=== PATIENT | male | born 1940 | race Caucasian/White ===

== ENCOUNTER 2021-07-06 05:05 | Day surgery (SDC) | payer MEDICARE ==
[2021-07-06] MEDS ORDERED: fentaNYL 100 MCG/2 ML SDV IV ONE ×3 (05:06→06:42)
[2021-07-06] MEDS ORDERED: Midazolam 1 MG/ML 2 ML SDV IV ONE ×3 (05:06→06:44)
[2021-07-06] MEDS ORDERED: fentaNYL 100 MCG/2 ML SDV ONE (05:24)
[2021-07-06] MEDS ORDERED: Midazolam 1 MG/ML 2 ML SDV ONE (05:24)
[2021-07-06] MEDS ORDERED: Dextrose 5%-0.45% NaCl 1,000 ML IV SCH (06:05)
--- NOTE | 2021-07-06 07:39 | OR ---
DATE: 07/06/2021 PROCEDURES: Esophagogastroduodenoscopy, narrow band imaging, and multiple pinch biopsies. INSTRUMENT USED: GIF-HQ190 Olympus video panendoscope. PREMEDICATIONS: No oral or topical anesthesia used. Fentanyl 100 mcg intravenous, Versed 2 mg intravenous. The procedure was done under pulse oximetry, BP recording, and quality assurance monitor body. INDICATION: The patient with temporal poorly differentiated carcinoma, metastatic. Esophagogastroduodenoscopy is performed for detection of any active erosive lesions, malignancy also under consideration, endoscopic hemostasis therapy if needed. DESCRIPTION OF PROCEDURE: The scope was passed with ease. Adequate visualization of the esophagus was made from proximal to distal areas. No upper esophageal lesions identified. No distal esophageal stricture. No uphill or downhill esophageal varices. No Madelaine-Barreto tear. No evidence of erosive esophagitis by Wagoner criteria. No esophageal polyp or tumor mass identified. Z-line was seen at around 40 cm distal to the oral verge. No proximal gastric varices noted. Gastric fundus examination by retroflexion showed diminutive and benign-appearing polyps. No gastric ulcer, malignant mass, or vascular ectasia identified. Scattered gastric antral erosions were noted without bleeding from them. In the gastric antrum, over 1 cm sized benign- appearing submucosal lesion was noted, NBI views were obtained, multiple pinch biopsies were obtained and sent for histopathology. Duodenal bulb showed no ulcer. Visualized second part of the duodenum was unremarkable. Multiple pinch biopsies were taken from the gastric antrum and proximal body and sent for PyloriTek test for H. pylori and histopathology. No bleeding was noted from any of the visualized areas at the completion of examination. Photographs were taken of the duodenal bulb, gastric antrum, fundus, and distal esophagus. IMPRESSION: 1. Gastric antral erosions. 2. Gastric antral submucosal lesion. 3. Diminutive gastric fundus polyps. The patient tolerated the procedure well. [facility] /[id number]
--- NOTE | 2021-07-06 07:48 | LETTER ---
07/06/2021 RE: NATHAN HARMAN : 1940 Gustavo Adkins MD Oncology Services, [address] Adkins: Mr. Nathan Harman had esophagogastroduodenoscopy done this morning and he tolerated the procedure well. I herewith send a copy of the endoscopy note and photographs for your review. Thank you. Sincerely, [facility] /[id number]
[2021-07-06 10:41] VITALS: BP 145/69; PULSE 61
--- NOTE | 2021-07-12 09:13 | LETTER ---
07/12/2021 RE: ADAIRNATHAN AMERICA : 1940 Gustavo Adkins MD Oncology Services, [address] Adkins: Mr. Nathan Tate had esophagogastroduodenoscopy done and tolerated the procedure well. I herewith send a copy of the endoscopy note and photographs for your review. Thank you. Sincerely, [facility] /[id number]
== END 2021-07-06 09:02 | disposition home or self-care (01) ==
LOC: DL.ENDO 05:05
PROVIDERS: ATTEND Internal Medicine Gastroenterology
DX: K31.89 Other diseases of stomach and duodenum (principal); I78.1 Nevus, non-neoplastic; C76.0 Malignant neoplasm of head, face and neck; Z01.812 Encounter for preprocedural laboratory examination; Z20.822 Contact with and (suspected) exposure to COVID-19
CPT/HCPCS: 43239; 87077; 88305; 88342; J2250; J3010; J7042; U0002

== ENCOUNTER 2021-07-14 05:59 | Day surgery (SDC) | payer MEDICARE, OTHER ==
[~2021-07-14 05:59] MED LIST: Midazolam 1 MG/ML 2 ML SDV ONE; fentaNYL 100 MCG/2 ML SDV ONE
[2021-07-14] MEDS ORDERED: Midazolam 1 MG/ML 2 ML SDV IV ONE ×4 (06:00→07:57)
[2021-07-14] MEDS ORDERED: fentaNYL 100 MCG/2 ML SDV IV ONE ×3 (06:00→07:50)
[2021-07-14] MEDS ORDERED: Dextrose 5%-0.45% NaCl 1,000 ML IV SCH (07:00)
--- NOTE | 2021-07-14 09:08 | OR ---
DATE: 07/14/2021 PROCEDURE: Total colonoscopy. INSTRUMENT USED: PCF-H190DL Olympus video colonoscope. PREMEDICATIONS: Fentanyl 100 mcg intravenous, Versed 2.5 mg intravenous. Nasal O2 cannula. The procedure was done under pulse oximetry, BP recording, and warp tying machine tender. INDICATION: The patient with metastatic cancer. Colonoscopic examination is done for detection of any polypoid lesions and removal, malignancy under consideration, endoscopic hemostasis therapy if needed. DESCRIPTION OF PROCEDURE: Initial rectal exam was unremarkable. Rigid anoscopy showed small internal hemorrhoids without bleeding from them. The colonoscope was passed with ease. Numerous scattered diverticula were noted, more so in the left colon along with some deformity. The scope was passed with ease up to the ileocecal area. Photographs were taken of the cecum, identified by landmarks of appendiceal orifice and double-bulged ileocecal folds. No bleeding was noted from any of the visualized areas at the commencement of the examination. The bowel preparation was found to be adequate, Mansfield scale 2 in right and left colon, 3 in transverse colon, total score 7. No stricture. No vascular ectasia. No large isolated ulcerations seen. No evidence of diffuse inflammatory bowel disease in the form of friability, contact bleeding, or ulcerations. No polyp or tumor mass identified. Probing the proximal sides of folds and flexures using adequate distention and clearing up the stool material, withdrawal of the scope was made, cecum to rectum time over 9 minutes. Second look of the right colon was done. No bleeding was noted from any of the visualized areas at the completion of examination. IMPRESSION: 1. Internal hemorrhoids. 2. Diverticulosis. The patient tolerated that dictated well. [facility] /[id number]
--- NOTE | 2021-07-14 09:22 | LETTER ---
07/14/2021 RE: NATHAN HARMAN : 1940 Gustavo Adkins MD Oncology Services, [address] [address] Adkins: Mr. Nathan Harman had colonoscopic examination done this morning and he tolerated the procedure well. I herewith send a copy of the endoscopy note and photographs for your review. Thank you. Sincerely, [facility] /[id number]
[2021-07-14 11:40] VITALS: BP 127/58; PULSE 64
== END 2021-07-14 10:05 | disposition home or self-care (01) ==
LOC: DL.ENDO 05:59
PROVIDERS: ATTEND Internal Medicine Gastroenterology
DX: K57.30 Diverticulosis of large intestine without perforation or abscess without bleeding (principal); K64.8 Other hemorrhoids; C80.1 Malignant (primary) neoplasm, unspecified; Z01.812 Encounter for preprocedural laboratory examination; Z20.822 Contact with and (suspected) exposure to COVID-19
CPT/HCPCS: J2250; J3010; J7042; U0002